=== PATIENT | male | born 1940 | race Caucasian/White ===

== ENCOUNTER 2019-02-09 16:56 | Emergency (ER) | payer OTHER ==
[2019-02-09 17:19] VITALS: BP 120/66; PULSE 76; TEMP 98.3; BMI 25.1
[2019-02-09] MEDS ORDERED: IBUPROFEN 600 MG TABLET (FP) PO ONE ×2 (18:02→18:03)
--- NOTE | 2019-02-09 18:19 | PDOC ---
History of Present Illness - General Chief Complaint: Toothache Stated Complaint: PAIN IN MOUTH Time Seen by Provider: 02/09/19 18:10 History Source: Patient Exam Limitations: No Limitations - History of Present Illness Initial Comments: 02/09/19 18:21 Patient came for evaluation of worsening dental pain. Patient has known extensive dental decay where he relates to his worsening diabetes. Seen dentist for many months. Denies fever, but nose has eroded teeth to pulp but worsened pain is in his right upper mouth. Denies swelling to his face, denies any lesions inside of his mouth but is here for pain control as states will see dentist at [facility] tomorrow morning. Timing/Duration: unsure, 1 week, constant, getting worse Severity: moderate, severe Past History - Travel Traveled outside of the country in the last 30 days: No Close contact w/someone who was outside of country & ill: No - Past Medical History Allergies/Adverse Reactions: Allergies Allergy/AdvReac Type Severity Reaction Status Date / Time No Known Allergies Allergy Verified 02/09/19 17:19 Home Medications: Ambulatory Orders Amoxicillin - [Amoxicillin 500mg Capsule -] 500 mg PO TID #21 capsule 02/09/19 COPD: No Dementia: Yes HTN: Yes - Surgical History Abdominal Surgery: Yes Cholecystectomy: No GI Surgery: Yes - Immunization History Immunization Up to Date: No - Suicide/Smoking/Psychosocial Hx Smoking History: Never smoked Have you smoked in the past 12 months: No Information on smoking cessation initiated: No Hx Alcohol Use: No Drug/Substance Use Hx: No Review of Systems - Review of Systems Able to Perform ROS?: Yes Is the patient limited Japanese proficient: Yes Constitutional: Yes: Symptoms Reported, See HPI, Malaise. No: Chills, Fever HEENTM: Yes: Symptoms Reported, See HPI, Mouth Pain Respiratory: Yes: See HPI. No: Symptoms reported Integumentary: Yes: Symptoms Reported All Other Systems: Reviewed and Negative *Physical Exam - Vital Signs Last Vital Signs Temp Pulse Resp BP Pulse Ox 98.3 F 76 16 120/66 99 02/09/19 17:16 02/09/19 17:16 02/09/19 17:16 02/09/19 17:16 02/09/19 17:16 - Physical Exam General Appearance: Yes: Nourished, Appropriately Dressed, Apparent Distress, Mild Distress, Moderate Distress HEENT: positive: IRAIS, TMs Normal, Pharynx Normal, Other (multiple teeth with erosion, many down to gingival surface with exposed pulp. No abscess noted to jaw, palate or inner aspect of teeth insertion.). negative: Normal ENT Inspection Neck: negative: Tender, Lymphadenopathy (R), Lymphadenopathy (L) Respiratory/Chest: positive: Lungs Clear ED Treatment Course - Medications Given in the ED: ED Medications Discontinued Medications Generic Name Dose Route Start Last Admin Trade Name Deshawn PRN Reason Stop Dose Admin Ibuprofen 600 mg 02/09/19 18:02 02/09/19 18:14 Motrin - PO 02/09/19 18:03 600 mg ONCE ONE Administration Medical Decision Making - Medical Decision Making 02/09/19 18:23 Extensive dental decay, will start on amoxicillin, given 2 Percocet tablets for pain relief, unable to use NSAIDs due to patient's extensive peptic ulcer disease with recent hospitalization and transfusion for same *DC/Admit/Observation/Transfer Diagnosis at time of Disposition: Dental decay - Discharge Dispostion Disposition: HOME Condition at time of disposition: Stable Decision to Admit order: No - Referrals - Patient Instructions Printed Discharge Instructions: DI for Dental Pain Additional Instructions: Rest, drink lots of fluids: Teas, water, soups Saltwater gargles/ keep mouth clean and rinse after each meal May use wet teabag for pain relief to area Avoid hard chewing foods, stick to ice cream, Jell-O, yogurt etc. Tylenol or Motrin for fever and pain Complete all medication as prescribed Seek dental appointment as soon as possible for evaluation of dental injury/pain Followup with private physician in one to 2 days as needed Return to emergency department for worsened symptoms, fevers, swelling to face or worsened pain - Post Discharge Activity Forms/Work/School Notes: Back to Work
[2019-02-09] MEDS ORDERED: AMOXICILLIN 500 MG CAPSULE (FP) PO ONE (18:24)
[2019-02-09] MEDS ORDERED: AMOXICILLIN 250 MG CAPSULE ONE (18:30)
== END 2019-02-09 18:43 | disposition home or self-care (01) ==
LOC: JERFT 16:56
DX: K02.9 Dental caries, unspecified (principal); E11.9 Type 2 diabetes mellitus without complications; F03.90 Unspecified dementia, unspecified severity, without behavioral disturbance, psychotic disturbance, mood disturbance, and anxiety
CPT/HCPCS: 99281-25